=== PATIENT | male | born 1960 | race Caucasian/White ===

== ENCOUNTER → 2021-09-29 | Day surgery (SDC) | payer OTHER ==
[~2021-09-29] VITALS: Ht 185.4 cm; Wt 83.9 kg
[~2021-09-29] MED LIST: DICLOFENAC SODI75 MG PO; ESCITALOPRAM OX20 MG PO; NAPROXEN500 MG PO
[2021-09-29 08:40] LABS: HGB 15.5 g/dl (13.2-18.0); MCH 31.5 pg (25.0-31.0); MCHC 33.7 g/dL (32.0-36.0); MCV 93.5 fL (78.0-100.0); RBC 4.92 M/uL (4.70-6.00); RDW 13.9 % (11.5-14.0); WBC 5.7 K/uL (4.0-10.5)
[2021-09-29 09:00] LABS: ALBUMIN 4.6 g/dL (3.4-5.0); BILIRUBIN - TOTAL 1.1 mg/dL (0.2-1.0); BUN/CREAT RATIO (CALC) 17.2 RATIO; CREATININE 0.93 mg/dL (0.67-1.17); GLOBULIN (CALCULATION) 4.1 g/dL; POTASSIUM 4.3 mmol/L (3.5-5.1); TOTAL PROTEIN 8.7 g/dL (6.4-8.2)
== END | disposition home or self-care (01) ==
LOC: FAS 08:11
PROVIDERS: Surgery
DX: Z12.11 Encounter for screening for malignant neoplasm of colon (principal)
CPT/HCPCS: 36415; 80053; J2704; J7120